=== PATIENT | female | born 1960 | race Caucasian/White ===

== ENCOUNTER 2018-10-18 08:26 | Emergency (ER) | payer OTHER ==
[~2018-10-18] VITALS: Ht 162.6 cm; Wt 84.5 kg
[2018-10-18 12:23] VITALS: BP 131/72
== END 2018-10-18 12:25 | disposition home or self-care (01) ==
LOC: ED 12:19
DX: J15.9 Unspecified bacterial pneumonia (principal); Z87.891 Personal history of nicotine dependence
CPT/HCPCS: 36415; 70450; 71045; 80053; 80307; 81003; 84484; 85025; 93005; 96374; 96375; 99284; J1200; J1885; J2405